=== PATIENT | male | born 1960 | race Caucasian/White ===

== ENCOUNTER 2018-01-07 22:57 | Emergency (ER) | payer BC ==
[~2018-01-07] VITALS: Ht 182.9 cm; Wt 115.7 kg
[~2018-01-07 22:57] MED LIST: GUAI600T47 PO; IPRA3AMP29 NEB; LINE600T PO; PRED-220 PO
--- NOTE | 2018-01-07 23:01 | PHYS DOC ---
Past Medical History Past Medical History: No Pertinent History Past Surgical History: Tonsillectomy, Other Additional Past Surgical Histo: umbilical hernia Alcohol Use: Rarely Drug Use: None Adult General Chief Complaint Chief Complaint: ANIMAL BITE HPI HPI Patient is a 57 year old male who presents with dog bite to the left hand and wrist. The patient states he has a large dog at home. The dog was biting his granddaughter when he intervened and sustained significant bite wound to the left hand. The dog is owned by the patient who states that the immunizations are all current including rabies. The patient is uncertain when his last tetanus shot was. He complains primarily of pain and swelling along the left thumb and thenar eminence as well as multiple puncture wounds and lacerations about the hand and wrist on the left. No loss of sensation to touch. Review of Systems Review of Systems Constitutional: Denies Eyes: Denies HENT: Denies Respiratory: Denies GI: Denies : Denies Musculoskeletal: pain at area of dog bite Integument: Denies rash Neurologic: Denies headache All other systems were reviewed and found to be within normal limits, except as documented in this note. Current Medications Current Medications Current Medications Medications (Trade) Dose Ordered Sig/Balbir Start Time Stop Time Status Last Admin Dose Admin Acetaminophen/ Hydrocodone Bitart (Lortab 5/325) 2 tab 1X ONCE 01/07/18 23:30 01/07/18 23:31 DC 01/07/18 23:13 2 TAB Amoxicillin/ Clavulanate Potassium (Augmentin 875/ 125mg) 1 tab 1X ONCE 01/08/18 01:00 01/08/18 01:00 DC 01/08/18 00:39 1 TAB Diphtheria/ Tetanus/Acell Pertussis (Boostrix) 0.5 ml ONCE ONCE 01/07/18 23:30 01/07/18 23:31 DC 01/08/18 00:28 0.5 ML Lidocaine HCl (Lidocaine 1% 20ml Vial) 20 ml 1X ONCE 01/08/18 00:00 01/08/18 00:01 DC 01/08/18 00:15 20 ML Allergies Allergies Allergies Coded Allergies Type Severity Reaction Last Updated Verified I S O L A T I O N *CONTACT* Allergy Unknown 04/30/15 Yes No Known Medication Allergies Allergy Unknown 04/30/15 Yes Physical Exam Physical Exam Constitutional: Well developed, well nourished, no acute distress, non-toxic appearance HENT: Normocephalic, atraumatic Eyes: PERRLA, EOMI Neck: Normal range of motion Abdomen: Bowel sounds normal, soft Skin: Warm, dry Extremities: Left hand with extensive laceration over the thenar eminence and multiple puncture wounds over the dorsum of the hand, wrist, and distal forearm. There are wounds that will require suturing in all locations but the most extensive lacerations are over the palm which extends through the skin, fascia, and into the deep tissue. Regarding the thumb, distal capillary refill is less than 2 seconds. Sensation to light touch is intact. The patient has intact abduction, abduction, flexion, extension. He can make an okay sign. He can touch his thumb to the small finger. Regarding the hand, sensation to light touch is intact over all dermatomes. There is significant soft tissue trauma and swelling about the thenar eminence and dorsum of the wrist. Neurologic: Alert and oriented X 3 Psychologic: Affect normal Current Patient Data Vital Signs Vital Signs Date Time Temp Pulse Resp B/P (MAP) Pulse Ox O2 Delivery O2 Flow Rate FiO2 01/07/18 23:13 18 98 Room Air 01/07/18 23:12 97.9 93 157/82 (107) 97.9 EKG EKG [] Radiology/Procedures Radiology/Procedures No acute fracture seen on plain films of hand/forearm. Soft tissue swelling. Course & Med Decision Making Course & Med Decision Making Pertinent Labs and Imaging studies reviewed. (See chart for details) 23:00: patient is seen and examined. 00:35: Patient was evaluated in the emergency department for significant diaper bite with lacerations over the left wrist and hand as described above. See the procedure note below. The wounds were sutured. The patient was given ibuprofen and Hubertus for pain. He was started on Augmentin given the severity of the injuries. No indication is present for rabies immune globulin. The patient did receive a tetanus update while he was in the ER. He is discharged home with pain medications. Opiate precautions were discussed. Patient was advised to return to the ER in 10-14 days to have the sutures removed. Wound precautions and signs of infection were discussed and the patient was advised to come back to the ER sooner if these occur. Procedure note: All areas about the left wrist and hand were cleansed with Betadine and irrigated copiously with saline. Multiple lacerations are present. Multiple puncture wounds were present. All wounds were closed with 4-0 silk, abraded. There were a total of 33 stitches placed. A total of 20 mL of 1% lidocaine was used to provide local anesthesia to all of the wounds. Simple interrupted sutures were placed except for a single wound over the dorsum of the wrist when a running suture was used with 4 throws placed. Following closure , all wounds were cleansed vigorously. A clean dry dressing was placed on the wound. Patient tolerated well. Dragon Disclaimer Dragon Disclaimer This electronic medical record was generated, in whole or in part, using a voice recognition dictation system. Departure Departure Referrals: JARROD KUMAR MD (PCP) Scripts Amoxicillin/Potassium Clav (AUGMENTIN 875-125 TABLET) 1 Each Tablet 1 TAB PO BID, #20 TAB Prov: BRIAN SPRAGUE DO 01/08/18 Hydrocodone/Apap 5-325 (NORCO 5-325 TABLET) 1 Each Tablet 1-2 EACH PO PRN Q6HRS PRN for SEVERE PAIN, #24 as needed for pain Prov: BRIAN SPRAGUE DO 01/08/18 Ibuprofen (IBUPROFEN) 800 Mg Tablet 800 MG PO PRN TID PRN for MILD PAIN, #30 TAB take with food or milk to avoid upsetting stomach Prov: BRIAN SPRAGUE DO 01/08/18 BRIAN SPRAGUE DO Jan 07, 2018 23:01
[2018-01-07 23:12] VITALS: BP 157/82
[2018-01-07] MEDS ORDERED: LIDOCAINE 1% Multi-Dose 20 ML VIAL. INJ ONE (23:30)
[2018-01-07] MEDS ORDERED: DIPHTH,PERTUSS(ACELL),TET TOX 0.5 ML DISP.SYRIN. VAX IM ONE (23:30)
[2018-01-07] MEDS ORDERED: HYDROcodone/APAP 5/325MG 1 TAB TABLET PO ONE (23:30)
[2018-01-08] MEDS ORDERED: LIDOCAINE 1% Multi-Dose 20 ML VIAL. INJ ONE
[2018-01-08] MEDS ORDERED: AMOX1TAB61 PO (00:31)
[2018-01-08] MEDS ORDERED: IBUP-1060 PO (00:31)
[2018-01-08] MEDS ORDERED: HYDR-3164 PO (00:31)
[2018-01-08] MEDS ORDERED: AMOXICILLIN/K CLAV 875/125MG TABLET. PO ONE (01:00)
--- NOTE | 2018-01-08 02:56 | RAD ---
INDICATION: dog bite COMPARISON: None. IMPRESSION: Left hand: 3 views obtained. There is some apparent air within the soft tissues including adjacent to the distal radius. No definite acute fracture or dislocation. Left forearm: 2 views obtained. There is some air in the soft tissues as well as induration the fat could be from soft tissue injury but no definite acute fracture or dislocation. Electronically signed by: Christian Shields MD (01/08/2018 2:53 AM) [id number]
== END 2018-01-08 00:45 | disposition home or self-care (01) ==
LOC: ER 22:57
DX: S51.812A Laceration without foreign body of left forearm, initial encounter (principal); S61.412A Laceration without foreign body of left hand, initial encounter; S61.512A Laceration without foreign body of left wrist, initial encounter; Z90.89 Acquired absence of other organs; W54.0XXA Bitten by dog, initial encounter; Y93.89 Activity, other specified; Y92.009 Unspecified place in unspecified non-institutional (private) residence as the place of occurrence of the external cause; Y99.8 Other external cause status
CPT/HCPCS: 12001; 73090; 73130; 90471; 90715; 99284; 99285

== ENCOUNTER 2018-01-10 13:05 | Emergency (ER) | payer BC ==
[~2018-01-10] VITALS: Ht 182.9 cm; Wt 115.7 kg
[~2018-01-10 13:05] MED LIST changes: +AMOX1TAB61 PO; +HYDR-971 PO; +IBUP-1060 PO
[2018-01-10] MEDS ORDERED: IV NORMAL SALINE 1000ML BAG 1,000 ML IV ONE (14:00)
[2018-01-10] MEDS ORDERED: PIPERACILLIN/TAZOBACTAM 4.5 GM in IV NORMAL SALINE 100ML 100 ML IV ONE (14:00)
[2018-01-10] MEDS ORDERED: MORPHINE SULFATE 2 MG/ML VIAL. IV/SQ PRN (14:00)
[2018-01-10] MEDS ORDERED: VANCOMYCIN PER PHARMACY MC ONE (14:00)
--- NOTE | 2018-01-10 14:23 | RAD ---
HAND LEFT 3V History: Recent dog bite, hand swelling and weeping Comparison: January 07, 2018 Findings: 3 views of the left hand are submitted. There is soft tissue swelling most notable posteriorly at the level of the metacarpals. No acute osseous abnormality or radiopaque foreign body is identified. Impression: 1. No acute osseous abnormality or radiopaque foreign body is identified, increased soft tissue swelling compared with January 07, 2018 exam. Electronically signed by: Nico Veras MD (01/10/2018 2:19 PM) [id number]
[2018-01-10 14:34] LABS: BASO # 0.1 x10^3/uL (0.0-0.2); BASO % 1 % (0-3); EOS # 0.5 x10^3/uL (0.0-0.7); EOS % 6 % (0-3); HEMATOCRIT 44.6 % (39.0-53.0); HEMOGLOBIN 15.3 g/dL (13.0-17.5); LYMPH # 1.5 x10^3/uL (1.0-4.8); LYMPH % 18 % (24-48); MEAN CORPUSCULAR HEMOGLOBIN 31 pg (25-35); MEAN CORPUSCULAR HGB CONC 34 g/dL (31-37); MEAN CORPUSCULAR VOLUME 90 fL (79-100); MONO % 12 % (0-9); NEUT # 5.4 x10^3uL (1.8-7.7); NEUT % 64 % (31-73); PLATELET COUNT 276 x10^3/uL (140-400); RED BLOOD COUNT 4.99 x10^6/uL (4.30-5.70); RED CELL DISTRIBUTION WIDTH 13.6 % (11.5-14.5); WHITE BLOOD COUNT 8.5 x10^3/uL (4.0-11.0)
[2018-01-10 14:50] LABS: CALCIUM 9.1 mg/dL (8.5-10.1); GFR 76.7; POTASSIUM 3.7 mmol/L (3.5-5.1)
[2018-01-10 14:56] LABS: ALBUMIN 3.7 g/dL (3.4-5.0); TOTAL BILIRUBIN 0.4 mg/dL (0.2-1.0); TOTAL PROTEIN 7.5 g/dL (6.4-8.2)
[2018-01-10] MEDS ORDERED: VANCOMYCIN 2 GM in IV NORMAL SALINE 500ML BAG 500 ML IV ONE (15:00)
--- NOTE | 2018-01-10 16:06 | PHYS DOC ---
Past Medical History Past Medical History: No Pertinent History Past Surgical History: Tonsillectomy, Other Additional Past Surgical Histo: umbilical hernia Alcohol Use: Rarely Drug Use: None Adult General Chief Complaint Chief Complaint: WOUND CHECK HPI HPI Patient is a 57 year old male with no significant medical history who presents today to be reevaluated after dog bite to the right hand that occurred 3 days ago. Patient states he was bit by his own dog. Patient states he was seen in the ED 3 days ago, he states they did stitches over the bite areas. Patient states the hand has been swollen but this morning he woke up with increased swelling as well as redness and streaking on the forearm. Patient denies any fever. Denies any nausea vomiting. He states he was sent home with Augmentin which he is still taking. He states his tetanus shot was updated 3 days ago. He states his dog is up-to-date with its shots. Patient states he is right-handed. Review of Systems Review of Systems Constitutional: Denies fever or chills [] Eyes: Denies change in visual acuity, redness, or eye pain [] HENT: Denies nasal congestion or sore throat [] Respiratory: Denies cough or shortness of breath [] Cardiovascular: No additional information not addressed in HPI [] GI: Denies abdominal pain, nausea, vomiting, bloody stools or diarrhea [] : Denies dysuria or hematuria [] Musculoskeletal: Denies back pain or joint pain [] Integument: Reports dog bites to the left hand Neurologic: Denies headache, focal weakness or sensory changes [] All other systems were reviewed and found to be within normal limits, except as documented in this note. Current Medications Current Medications Current Medications Medications (Trade) Dose Ordered Sig/Balbir Start Time Stop Time Status Last Admin Dose Admin Morphine Sulfate (Morphine Sulfate) 2 mg PRN Q15MIN PRN 01/10/18 14:00 01/11/18 13:59 Piperacillin Sod/ Tazobactam Sod 4.5 gm/Sodium Chloride 100 ml @ 200 mls/hr 1X ONCE 01/10/18 14:00 01/10/18 14:29 DC 01/10/18 14:48 200 MLS/HR Sodium Chloride 1,000 ml @ 1,000 mls/hr 1X ONCE 01/10/18 14:00 01/10/18 14:59 DC Vancomycin HCl (Vanco Per Pharmacy) 1 each 1X ONCE 01/10/18 14:00 01/10/18 14:01 UNV Vancomycin HCl 2 gm/Sodium Chloride 500 ml @ 250 mls/hr 1X ONCE 01/10/18 15:00 01/10/18 16:59 01/10/18 14:54 250 MLS/HR Allergies Allergies Allergies Coded Allergies Type Severity Reaction Last Updated Verified I S O L A T I O N *CONTACT* Allergy Unknown 04/30/15 Yes No Known Medication Allergies Allergy Unknown 04/30/15 Yes Physical Exam Physical Exam Constitutional: Well developed, well nourished, no acute distress, non-toxic appearance. [] HENT: Normocephalic, atraumatic, bilateral external ears normal, oropharynx moist, no oral exudates, nose normal. [] Eyes: PERRLA, EOMI, conjunctiva normal, no discharge. [] Neck: Normal range of motion, no tenderness, supple, no stridor. [] Cardiovascular:Heart rate regular rhythm, no murmur [] Lungs & Thorax: Bilateral breath sounds clear to auscultation [] Abdomen: Bowel sounds normal, soft, no tenderness, no masses, no pulsatile masses. [] Skin: Warm, dry, Right hand with moderate swelling. There is multiple laceration sites with stitches on the dorsal as well as ventral aspect of the hand. Some of the areas are draining bloody yellowish material. There is streaking on the ventral aspect of the right forearm that appears to be originating from some of the bites on the forearm and hand. Neurovascular exam is intact to the right hand with adequate radial, medial, ulnar sensation. Patient able to take the right hand/fingers through full range of motion though the swelling in the midst home much he can do. +2 right radial pulse. Cap refill less than 2 seconds the right fingers. Palm with dry scaly skin and erythema. Back: No tenderness, no CVA tenderness. [] Extremities: No tenderness, no cyanosis, no clubbing, ROM intact, no edema. [] Neurologic: Alert and oriented X 3, normal motor function, normal sensory function, no focal deficits noted. [] Psychologic: Affect normal, judgement normal, mood normal. [] Current Patient Data Vital Signs Vital Signs Date Time Temp Pulse Resp B/P (MAP) Pulse Ox O2 Delivery O2 Flow Rate FiO2 11/13/18 13:29 99.0 81 20 155/77 (103) 97 Room Air 99.0 Lab Values Laboratory Tests Test 01/10/18 14:18 White Blood Count 8.5 x10^3/uL (4.0-11.0) Red Blood Count 4.99 x10^6/uL (4.30-5.70) Hemoglobin 15.3 g/dL (13.0-17.5) Hematocrit 44.6 % (39.0-53.0) Mean Corpuscular Volume 90 fL (79-100) Mean Corpuscular Hemoglobin 31 pg (25-35) Mean Corpuscular Hemoglobin Concent 34 g/dL (31-37) Red Cell Distribution Width 13.6 % (11.5-14.5) Platelet Count 276 x10^3/uL (140-400) Neutrophils (%) (Auto) 64 % (31-73) Lymphocytes (%) (Auto) 18 % (24-48) L Monocytes (%) (Auto) 12 % (0-9) H Eosinophils (%) (Auto) 6 % (0-3) H Basophils (%) (Auto) 1 % (0-3) Neutrophils # (Auto) 5.4 x10^3uL (1.8-7.7) Lymphocytes # (Auto) 1.5 x10^3/uL (1.0-4.8) Monocytes # (Auto) 1.0 x10^3/uL (0.0-1.1) Eosinophils # (Auto) 0.5 x10^3/uL (0.0-0.7) Basophils # (Auto) 0.1 x10^3/uL (0.0-0.2) Sodium Level 139 mmol/L (136-145) Potassium Level 3.7 mmol/L (3.5-5.1) Chloride Level 100 mmol/L (98-107) Carbon Dioxide Level 31 mmol/L (21-32) Anion Gap 8 (6-14) Blood Urea Nitrogen 14 mg/dL (8-26) Creatinine 1.0 mg/dL (0.7-1.3) Estimated GFR (Cockcroft-Gault) 76.7 BUN/Creatinine Ratio 14 (6-20) Glucose Level 79 mg/dL (70-99) Lactic Acid Level 0.9 mmol/L (0.4-2.0) Calcium Level 9.1 mg/dL (8.5-10.1) Total Bilirubin 0.4 mg/dL (0.2-1.0) Aspartate Amino Transferase (AST) 12 U/L (15-37) L Alanine Aminotransferase (ALT) 25 U/L (16-63) Alkaline Phosphatase 43 U/L (46-116) L C-Reactive Protein, Quantitative 34.1 mg/L (0-3.3) H Total Protein 7.5 g/dL (6.4-8.2) Albumin 3.7 g/dL (3.4-5.0) Albumin/Globulin Ratio 1.0 (1.0-1.7) Procalcitonin < 0.10 ng/mL (0.00-0.10) Laboratory Tests 01/10/18 14:18 Laboratory Tests 01/10/18 14:18 EKG EKG [] Radiology/Procedures Radiology/Procedures []PROCEDURE: HAND LEFT 3V HAND LEFT 3V History: Recent dog bite, hand swelling and weeping Comparison: January 07, 2018 Findings: 3 views of the left hand are submitted. There is soft tissue swelling most notable posteriorly at the level of the metacarpals. No acute osseous abnormality or radiopaque foreign body is identified. Impression: 1. No acute osseous abnormality or radiopaque foreign body is identified, increased soft tissue swelling compared with January 07, 2018 exam. Electronically signed by: Abdulkadir English MD (01/10/2018 2:19 PM) [id number] DICTATED and SIGNED BY: ABDULKADIR ENGLISH MD DATE: 01/10/18 1418 Course & Med Decision Making Course & Med Decision Making Pertinent Labs and Imaging studies reviewed. (See chart for details) This is a 57-year-old male patient presenting to the ED today with with worsening swelling and redness to the left hand after dog bite 3 days ago. He was bit by his own dog. Tetanus up-to-date. Dog is up-to-date with his shots. Consulted with Dr. Barraza and we agreed patient needs to be transferred to a Hospital with a hand surgeon for possible I&D. 1554 Spoke with [facility] transfer line, they informed me patient has been accepted by Dr. Walker CBC, CMP with no acute findings. CRP 34.1. Lactic 0.9. Vitals on arrival to the ED temperature 99.0, heart rate 81 O2 sats 97% on room air, respiration 20, blood pressure 155/77. Patient will be transferred to . Was given Zosyn and vancomycin in the ED. Dragon Disclaimer Dragon Disclaimer This electronic medical record was generated, in whole or in part, using a voice recognition dictation system. Departure Departure Impression: Primary Impression: Infected dog bite Disposition: 05 TRANSFER OTHER Condition: STABLE Referrals: JARROD KUMAR MD (PCP) TERRY MURO WINDERMAN Jan 10, 2018 16:06
[2018-01-10 17:25] VITALS: BP 111/84
== END 2018-01-10 17:25 | disposition short-term general hospital (02) ==
LOC: ER 13:05
DX: L08.89 Other specified local infections of the skin and subcutaneous tissue (principal); S61.451D Open bite of right hand, subsequent encounter; Z91.041 Radiographic dye allergy status; W54.0XXD Bitten by dog, subsequent encounter
CPT/HCPCS: 36415; 73130; 80053; 83605; 84145; 85025; 85651; 86140; 87040; 87071; 87075; 96365; 96366; 96375; 99285; J2543; J3370; J7030; J7040